=== PATIENT | male | born 1975 | race Caucasian/White ===

== ENCOUNTER → 2017-05-12 | Outpatient (CLI) | payer OTHER ==
[~2017-05-12] MED LIST: ACET-1346 PO; ALPR1TAB3 PO; ALUM-30 PO; BENZ-89 PO; BUPR100T5 PO; FAMO20TA9 PO; HALO10TA17 PO; HALO5TAB PO; MIRT30TA3 PO; MOML PO; PRAZ2CAP2 PO; PRAZ5CAP2 PO; QUET1TAB13 PO; QUET1TAB37 PO; TRIA0.1C20 TOP
== END | disposition home or self-care (01) ==
LOC: C.LABMFLN 14:05
PROVIDERS: ATTEND Urology
DX: N45.1 Epididymitis (principal)